=== PATIENT | male | born 1970 | race Caucasian/White ===

== ENCOUNTER 2023-11-17 21:45 | Inpatient (IN) | payer OTHER ==
[2023-11-17 22:06] VITALS: BMI 22.2
[2023-11-17] MEDS ORDERED: MAG HYDROX/AL HYDROX/SIMETH 30 ML UNIT-DOSE CUP PO PRN (23:31)
[2023-11-17] MEDS ORDERED: P-EPHED 60MG/TRIPROLIDI 2.5MG TABLET PO PRN (23:31)
[2023-11-17] MEDS ORDERED: DOCUSATE SODIUM 100 MG CAPSULE (FP) PO PRN (23:31)
[2023-11-17] MEDS ORDERED: ACETAMINOPHEN 325 MG TABLET (FP) PO PRN (23:31)
[2023-11-17] MEDS ORDERED: BENZONATATE 200 MG CAPSULE PO PRN (23:31)
[2023-11-17] MEDS ORDERED: guaiFENesin 600 MG TABLET.ER (FP) PO PRN (23:31)
[2023-11-17] MEDS ORDERED: BENZOCAINE/MENTHOL (CHLORASEPTIC ) LOZENGE MM PRN (23:31)
[2023-11-17] MEDS ORDERED: MAGNESIUM HYDROX 2400MG/30ML ORAL SUSPENSION 30 ML CUP PO PRN (23:31)
[2023-11-17] MEDS ORDERED: POLYETHYLENE GLYCOL (HEALTHYLAX) 3350 17 GM PACKET PO PRN (23:31)
[2023-11-18] MEDS: MELATONIN 5 MG TABLETS PO SCH (00:45)
[2023-11-18] MEDS: PRENATAL VITAMINS W/ FOLIC ACID TABLET (FP) PO SCH (10:26)
[2023-11-18] MEDS ORDERED: LAMICTAL 200 MG PO SCH (13:00)
[2023-11-18] MEDS: TUBERCULIN PPD 5 TU/0.1ML SYRINGE (IN PATIENT USE ONLY) ID ONE (13:23)
[2023-11-18 15:29] LABS: POTASSIUM 4.1 mmol/L (3.5-5.1)
[2023-11-18 15:38] LABS: ALBUMIN 3.7 g/dl (3.4-5.0); BLOOD UREA NITROGEN 14.4 mg/dL (7-18); CALCIUM 8.9 mg/dL (8.5-10.1)
[2023-11-18 15:41] LABS: HEMATOCRIT 43.4 % (35.4-49); HEMOGLOBIN 14.4 GM/dL (11.7-16.9); MCH 31.4 pg (25.7-33.7); MCHC 33.2 g/dl (32.0-35.9); MEAN CELL VOLUME 94.5 fl (80-96); MEAN PLT VOLUME 8.9 fl (7.5-11.1); PLATELET COUNT 245 10^3/uL (134-434); RDW 13.6 % (11.9-15.9); WHITE BLOOD COUNT 6.1 K/mm3 (4.0-10.0)
[2023-11-18 15:42] LABS: BILIRUBIN,TOTAL 0.6 mg/dL (0.2-1)
[2023-11-18 15:43] LABS: TOT PROT 6.8 g/dl (6.4-8.2)
[2023-11-18] MEDS: LEVOTHYROXINE NA 200 MCG TABLET PO SCH (16:58)
[2023-11-18] MEDS: OXcarbazepine 300 MG TABLET (UD) PO SCH (16:59)
[2023-11-18] MEDS: clonazePAM 0.5 MG ODT TABLETS SL SCH (16:59)
[2023-11-18] MEDS: LEVOTHYROXINE 100 MG PO SCH (17:13)
[2023-11-18] MEDS: TRILEPTAL 300 MG PO SCH (17:14)
[2023-11-18] MEDS: PATIENT'S OWN MEDICATION (NON-FORMULARY) (Metoprolol Succinate 50 MG) PO SCH (17:14)
[2023-11-18 19:19] LABS: PH,URINE 7.5 (5.0-8.0); URINE APPEARANCE TURBID; URINE BILIRUBIN NEGATIVE (NEGATIVE); URINE COLOR YELLOW; URINE GLUCOSE (UA) NEGATIVE (NEGATIVE); URINE KETONE NEGATIVE (NEGATIVE); URINE LEUK ESTERASE NEGATIVE (NEGATIVE); URINE NITRITE NEGATIVE (NEGATIVE); URINE PROTEIN NEGATIVE (NEGATIVE)
[2023-11-18] MEDS: THIAMINE HCL 100 MG TABLET (FP) PO SCH (21:39)
[2023-11-18] MEDS: ATORVASTATIN CA 40 MG TABLET (FP) PO SCH (21:39)
[2023-11-18] MEDS: traZODone HCL 100 MG TABLET (FP) PO ONE (21:39)
[2023-11-18] MEDS ORDERED: PATIENT'S OWN MEDICATION (NON-FORMULARY) (Atorvastatin Ca 40 MG) PO SCH (22:00)
[2023-11-19] MEDS: ALBUTEROL SO4 0.083% IH SOL 2.5 MG/3 ML VIAL.NEB. NEB PRN (06:22)
[2023-11-19] MEDS: LOPERAMIDE HCL 2 MG CAPSULE PO PRN (12:20)
[2023-11-19] MEDS: IBUPROFEN 600 MG TABLET (FP) PO PRN (12:20)
[2023-11-19] MEDS: traZODone HCL 100 MG TABLET (FP) PO ONE (22:37)
[2023-11-20] MEDS: lamoTRIgine 100 MG TABLET PO SCH (21:55)
[2023-11-20] MEDS: traZODone HCL 50 MG TABLET (FP) PO ONE (22:27)
[2023-11-20] MEDS: OXcarbazepine 300 MG TABLET (UD) PO ONE (22:27)
[2023-11-21] MEDS: LEVOTHYROXINE NA 100 MCG TABLET (FP) PO SCH (06:42)
[2023-11-21] MEDS: IBUPROFEN 400 MG TABLET (FP) PO PRN (07:23)
[2023-11-21] MEDS: OXcarbazepine 300 MG TABLET (UD) PO SCH (10:20)
[2023-11-21] MEDS ORDERED: HYDROCORTISONE 1% TOPICAL CREAM 30 GM TUBE TP PRN (14:53)
[2023-11-21] MEDS: HYDROCORTISONE 1% TOPICAL CREAM 30 GM TUBE TP SCH (21:44)
[2023-11-21] MEDS: SUVOREXANT 10 MG TABLET PO PRN (22:19)
[2023-11-22] MEDS ORDERED: INGREZZA 80 MG PO SCH (10:00)
[2023-11-22] MEDS ORDERED: FYCOMPA PO SCH (10:00)
[2023-11-23] MEDS: INGREZZA 80 MG PO SCH (15:05)
[2023-11-23] MEDS: FYCOMPA PO SCH (15:11)
[2023-11-24] MEDS ORDERED: SUVOREXANT 10 MG TABLET PO PRN (22:00)
[2023-11-25] MEDS: ALBUTEROL SO4 0.083% IH SOL 2.5 MG/3 ML VIAL.NEB. NEB PRN (10:37)
[2023-11-25] MEDS: clonazePAM 0.5 MG ODT TABLETS SL SCH (21:50)
[2023-11-25] MEDS: SUVOREXANT 10 MG TABLET PO PRN (23:49)
[2023-11-27] MEDS: CARBAMIDE PEROXIDE 6.5% OTIC 15 ML BOTTLE AS SCH (10:41)
[2023-11-28] MEDS: SUVOREXANT 15 MG TABLET PO PRN (22:48)
[2023-12-01 07:03] VITALS: RESP 16; TEMP 97.5
[2023-12-01] MEDS: FYCOMPA PO ONE (09:12)
[2023-12-01 10:00] VITALS: BP 122/75; PULSE 63
== END 2023-12-01 09:25 | disposition home or self-care (01) | DRG 772 ==
LOC: YASAS 21:45 → Y5N 23:59
PROVIDERS: ADMIT Allergy & Immunology; ATTEND Psychiatry & Neurology Pain Medicine
PROC: HZ42ZZZ Group Counseling for Substance Abuse Treatment, Cognitive-Behavioral (ICD-10-PCS; principal; 2023-11-17)
DX: F10.20 Alcohol dependence, uncomplicated (principal); F12.90 Cannabis use, unspecified, uncomplicated; F10.282 Alcohol dependence with alcohol-induced sleep disorder; F10.24 Alcohol dependence with alcohol-induced mood disorder; G47.00 Insomnia, unspecified; E03.9 Hypothyroidism, unspecified; H61.23 Impacted cerumen, bilateral; R56.1 Post traumatic seizures; I10 Essential (primary) hypertension; R63.4 Abnormal weight loss; Z68.22 Body mass index [BMI] 22.0-22.9, adult; Z87.820 Personal history of traumatic brain injury; Z85.118 Personal history of other malignant neoplasm of bronchus and lung
CPT/HCPCS: 36415; 70450-TC; 80053; 80175; 80307; 81003; 83735; 84443; 85025; 85027; 86780; 93005; 93010; 94640; G0480

== ENCOUNTER 2024-02-09 22:40 | Inpatient (IN) | payer OTHER ==
[2024-02-09 23:28] VITALS: BMI 24.7
[2024-02-10] MEDS ORDERED: LOPERAMIDE HCL 2 MG CAPSULE PO PRN (00:23)
[2024-02-10] MEDS ORDERED: BENZOCAINE/MENTHOL (CHLORASEPTIC ) LOZENGE MM PRN (00:23)
[2024-02-10] MEDS ORDERED: IBUPROFEN 400 MG TABLET (FP) PO PRN (00:23)
[2024-02-10] MEDS ORDERED: MAG HYDROX/AL HYDROX/SIMETH 30 ML UNIT-DOSE CUP PO PRN (00:23)
[2024-02-10] MEDS ORDERED: BENZONATATE 200 MG CAPSULE PO PRN (00:23)
[2024-02-10] MEDS ORDERED: guaiFENesin 600 MG TABLET.ER (FP) PO PRN (00:23)
[2024-02-10] MEDS ORDERED: MAGNESIUM HYDROX 2400MG/30ML ORAL SUSPENSION 30 ML CUP PO PRN (00:23)
[2024-02-10] MEDS ORDERED: hydrOXYzine PAMOATE 25 MG CAPSULE (FP) PO PRN (00:23)
[2024-02-10] MEDS ORDERED: NALOXONE HCL 0.4 MG/ML VIAL IM PRN (00:23)
[2024-02-10] MEDS ORDERED: POLYETHYLENE GLYCOL (HEALTHYLAX) 3350 17 GM PACKET PO PRN (00:23)
[2024-02-10] MEDS ORDERED: IBUPROFEN 600 MG TABLET (FP) PO PRN (00:23)
[2024-02-10] MEDS ORDERED: ONDANSETRON *ODT* 4 MG TABLET SL PRN (00:23)
[2024-02-10] MEDS ORDERED: ACETAMINOPHEN 325 MG TABLET (FP) PO PRN (00:23)
[2024-02-10] MEDS ORDERED: BISMUTH SUBSALICYLATE 524 MG/30 ML PO PRN (00:23)
[2024-02-10] MEDS ORDERED: DICYCLOMINE HCL 10 MG CAPSULE PO PRN (00:23)
[2024-02-10] MEDS ORDERED: CLONAZEPAM PO PRN (09:23)
[2024-02-10] MEDS: PRENATAL VITAMINS W/ FOLIC ACID TABLET (FP) PO SCH (09:47)
[2024-02-10] MEDS: NICOTINE 14 MG/24 HOURS TOPICAL PATCH TD SCH (09:47)
[2024-02-10] MEDS: GABAPENTIN 100 MG CAPSULE PO SCH (13:10)
[2024-02-10] MEDS: METHOCARBAMOL 500 MG TABLET PO PRN (13:12)
[2024-02-10] MEDS: PATIENT'S OWN MEDICATION (NON-FORMULARY) (Metronidazole [Metronidazole] 500 MG Tablet) PO SCH (16:41)
[2024-02-10] MEDS: OXcarbazepine 150 MG TABLET (UD) PO SCH (16:42)
[2024-02-10] MEDS: CEFPODOXIME PROXETIL 100 MG TABLET PO SCH (16:43)
[2024-02-10] MEDS: THIAMINE 100 MG TABLET PO SCH (21:34)
[2024-02-10] MEDS: MELATONIN 5 MG TABLETS PO SCH (21:34)
[2024-02-10] MEDS: CLONAZEPAM PO SCH (21:36)
[2024-02-10] MEDS: ATORVASTATIN CA 40 MG TABLET (FP) PO SCH (21:37)
[2024-02-10] MEDS: OXcarbazepine 300 MG TABLET (UD) PO SCH (23:26)
[2024-02-10] MEDS: lamoTRIgine 100 MG TABLET PO SCH (23:27)
[2024-02-11] MEDS: VALBENAZINE TOSYLATE 80 MG PO SCH (09:49)
[2024-02-11] MEDS: PERAMPANEL 6 MG PO SCH (09:50)
[2024-02-11] MEDS ORDERED: PATIENT'S OWN MEDICATION (NON-FORMULARY) (Thiamine Hcl [B-1] 100 MG Tablet) PO SCH (10:00)
[2024-02-11] MEDS: metroNIDAZOLE 500 MG TABLET PO SCH (11:10)
[2024-02-11] MEDS: LEVOTHYROXINE NA 150 MCG TABLET PO SCH (11:10)
[2024-02-12] MEDS: clonazePAM 1 MG ODT TABLETS SL SCH (10:14)
[2024-02-12] MEDS: metroNIDAZOLE 250 MG TABLET PO SCH (10:18)
[2024-02-12] MEDS: NICOTINE POLACRILEX 2 MG GUM BUC PRN (10:21)
[2024-02-12] MEDS: BUPRENORPHINE HCL 150 MCG, BUPRENORPHINE HCL 75 MCG BC ONE (13:32)
[2024-02-12] MEDS: BUPRENORPHINE HCL 150 MCG, BUPRENORPHINE HCL 75 MCG BC PRN (18:56)
[2024-02-13] MEDS ORDERED: BUPRENORPHINE HCL 150 MCG, BUPRENORPHINE HCL 75 MCG BC PRN
[2024-02-13] MEDS: BUPRENORPHINE HCL 150 MCG, BUPRENORPHINE HCL 75 MCG BC SCH (06:13)
[2024-02-13] MEDS: LEVOTHYROXINE 100 MCG, LEVOTHYROXINE 50 MCG PO SCH (06:14)
[2024-02-13] MEDS ORDERED: PERAMPANEL 6 MG PO SCH (10:30)
[2024-02-13] MEDS: PERAMPANEL 6 MG PO SCH (10:51)
[2024-02-13] MEDS ORDERED: ONDANSETRON *ODT* 4 MG TABLET SL PRN (11:20)
[2024-02-13] MEDS: CEFPODOXIME PROXETIL 100 MG TABLET PO SCH (11:40)
[2024-02-13] MEDS ORDERED: lamoTRIgine 100 MG TABLET PO SCH ×2 (12:00→20:00)
[2024-02-13] MEDS: clonazePAM 1 MG ODT TABLETS SL SCH (20:07)
[2024-02-13] MEDS: OXcarbazepine 300 MG TABLET (UD) PO SCH (20:07)
[2024-02-13] MEDS: lamoTRIgine 100 MG TABLET PO SCH (20:07)
[2024-02-13] MEDS: SUVOREXANT 10 MG TABLET PO PRN (21:18)
[2024-02-14] MEDS: BUPRENORPHINE HCL 450 MCG FILM BC SCH (06:34)
[2024-02-14] MEDS: PERAMPANEL 6 MG PO SCH (08:31)
[2024-02-14] MEDS: SUVOREXANT 15 MG TABLET PO PRN (21:19)
[2024-02-14] MEDS: HYDROCORTISONE 1% TOPICAL CREAM 30 GM TUBE TP PRN (21:20)
[2024-02-15] MEDS ORDERED: BENZONATATE 200 MG CAPSULE PO PRN (16:20)
[2024-02-15] MEDS ORDERED: guaiFENesin 600 MG TABLET.ER (FP) PO PRN (16:20)
[2024-02-15] MEDS: BUPRENORPHINE/NALOXONE 4 MG/1 MG FILM PACKET SL ONE ×2 (16:28→21:26)
[2024-02-15] MEDS: SUVOREXANT 20 MG TABLET PO PRN (21:27)
[2024-02-16] MEDS: BUPRENORPHINE/NALOXONE 8 MG/2 MG FILM PACKET SL SCH ×2 (10:08→20:05)
[2024-02-17] MEDS: ALBUTEROL SO4 HFA INHALER IH PRN (08:49)
[2024-02-17] MEDS ORDERED: SUVOREXANT 10 MG TABLET PO PRN (22:00)
[2024-02-18] MEDS: SUVOREXANT 10 MG TABLET PO PRN (21:19)
[2024-02-19 07:50] LABS: BASO % 0.6 % (0-2.0); EOS % 1.9 % (0-4.5); HEMATOCRIT 39.9 % (35.4-49); HEMOGLOBIN 13.2 GM/dL (11.7-16.9); LYMPH % 34.5 % (8-40); MCH 30.1 pg (25.7-33.7); MCHC 33.2 g/dl (32.0-35.9); MEAN CELL VOLUME 90.5 fl (80-96); MEAN PLT VOLUME 9.3 fl (7.5-11.1); MONO % 11.9 % (3.8-10.2); NEUT % 51.1 % (42.8-82.8); PLATELET COUNT 153 10^3/uL (134-434); RBC 4.41 M/mm3 (4.00-5.60); RDW 14.3 % (11.9-15.9); WHITE BLOOD COUNT 4.3 K/mm3 (4.0-10.0)
[2024-02-19 08:08] LABS: POTASSIUM 4.2 mmol/L (3.5-5.1)
[2024-02-19 08:10] LABS: CALCIUM 8.5 mg/dL (8.5-10.1)
[2024-02-19 08:12] LABS: ALBUMIN 3.4 g/dl (3.4-5.0); BLOOD UREA NITROGEN 12.7 mg/dL (7-18)
[2024-02-19 08:14] LABS: CREATININE 0.9 mg/dL (0.55-1.3)
[2024-02-19 08:16] LABS: BILIRUBIN,TOTAL 0.5 mg/dL (0.2-1); TOT PROT 6.1 g/dl (6.4-8.2)
[2024-02-19] MEDS: SUVOREXANT 20 MG TABLET PO PRN (21:22)
[2024-02-20] MEDS: PERAMPANEL 6 MG PO SCH (13:29)
[2024-02-23] MEDS: PERAMPANEL 6 MG PO SCH (13:56)
[2024-02-23] MEDS ORDERED: NICOTINE POLACRILEX 2 MG GUM BUC PRN (14:00)
[2024-02-23] MEDS: SUVOREXANT 20 MG TABLET PO PRN (21:09)
[2024-02-23] MEDS: NICOTINE POLACRILEX 4 MG LOZENGE BC PRN (21:10)
[2024-02-24] MEDS ORDERED: NICOTINE POLACRILEX 4 MG GUM BUC PRN (13:59)
[2024-02-25] MEDS: NALOXONE (NARCAN) HCL 4 MG/0.1 ML SPRAY NS PRN (10:07)
[2024-02-26] MEDS: NICOTINE POLACRILEX 4 MG GUM BUC PRN (10:22)
[2024-02-26] MEDS: SUVOREXANT 20 MG TABLET PO PRN (21:20)
[2024-02-27] MEDS: NICOTINE POLACRILEX 4 MG GUM BUC PRN (09:56)
[2024-02-28] MEDS ORDERED: SUVOREXANT 20 MG TABLET PO PRN (22:00)
[2024-03-02] MEDS: SUVOREXANT 20 MG TABLET PO PRN (21:43)
[2024-03-04] MEDS: SUVOREXANT 20 MG TABLET PO PRN (21:31)
[2024-03-04] MEDS ORDERED: SUVOREXANT 10 MG TABLET PO PRN (22:00)
[2024-03-05] MEDS ORDERED: NICOTINE 14 MG/24 HOURS TOPICAL PATCH TD PRN (15:40)
[2024-03-06 07:05] VITALS: PULSE 67; RESP 16; TEMP 97.7
[2024-03-07 06:55] VITALS: BP 123/37
[2024-03-07] MEDS: PERAMPANEL 6 MG PO SCH (09:37)
== END 2024-03-07 09:40 | disposition home or self-care (01) | DRG 772 ==
LOC: YASAS 22:40 → Y3W 02-10 09:35
PROVIDERS: ADMIT Allergy & Immunology; ATTEND Psychiatry & Neurology Pain Medicine
PROC: HZ42ZZZ Group Counseling for Substance Abuse Treatment, Cognitive-Behavioral (ICD-10-PCS; principal; 2024-02-10)
DX: F10.20 Alcohol dependence, uncomplicated (principal); F13.20 Sedative, hypnotic or anxiolytic dependence, uncomplicated; F12.20 Cannabis dependence, uncomplicated; F10.282 Alcohol dependence with alcohol-induced sleep disorder; G47.00 Insomnia, unspecified; E03.9 Hypothyroidism, unspecified; I10 Essential (primary) hypertension; L30.9 Dermatitis, unspecified; R56.1 Post traumatic seizures; Z87.820 Personal history of traumatic brain injury; Z85.038 Personal history of other malignant neoplasm of large intestine; Z85.118 Personal history of other malignant neoplasm of bronchus and lung; Z88.5 Allergy status to narcotic agent
CPT/HCPCS: 36415; 80053; 80305; 85025; 87811; 93005; 93010